=== PATIENT | female | born 1980 | race Caucasian/White ===

== ENCOUNTER 2020-06-23 08:09 | Inpatient (IN) ==
[~2020-06-23 08:09] MED LIST: Famotidine 20 MG/2 ML VIAL IVP PRN; Metoclopramide 10 MG/2 ML VIAL IVP PRN; Naloxone 0.4 MG/ML INJ IVP PRN
[2020-06-23] MEDS ORDERED: Ringers Solution, Lactated 1,000 ML IVC SCH (08:15)
[2020-06-23 09:44] LABS: Basophils % 0.2 %; Eosinophils # 0.1 K/mcL (0.0-0.6); Eosinophils % 0.5 %; Hematocrit 31.6 % (35.3-44.9); Immature Granulocytes % 0.7 % (0-4); Lymphocytes # 1.2 K/mcL (0.6-4.6); Lymphocytes % 11.3 %; Mean Corpuscular HGB Conc 31.6 g/dL (31.6-35.5); Mean Corpuscular Hemoglobin 27.6 pg (28.0-33.3); Mean Corpuscular Volume 87.3 fL (83.0-100.0); Mean Platelet Volume 10.1 fL (9.4-12.4); Monocytes # 0.7 K/mcL (0.0-1.3); Monocytes % 6.2 %; Neutrophils # 8.6 K/mcL (1.6-8.9); Platelet Count 275 K/mcL (140-400); Red Blood Count 3.62 M/mcL (3.82-4.97); Segmented Neutrophils % 81.1 %; White Blood Count 10.6 K/mcL (4.3-11.1)
[2020-06-23 10:37] LABS: Adenovirus Not Detected (Not Detect); Bordetella Pertussis Not Detected (Not Detect); Chlamydophila pneumoniae Not Detected (Not Detect); Coronavirus 229E Not Detected (Not Detect); Coronavirus HKU1 Not Detected (Not Detect); Coronavirus NL63 Not Detected (Not Detect); Coronavirus OC43 Not Detected (Not Detect); Human Metapneumovirus Not Detected (Not Detect); Human Rhinovirus/Enterovirus Not Detected (Not Detect); Influenza A Subtype 2009 H1 Not Detected (Not Detect); Influenza B Not Detected (Not Detect); Mycoplasma pneumoniae Not Detected (Not Detect); Parainfluenza Virus 1 Not Detected (Not Detect); Parainfluenza Virus 2 Not Detected (Not Detect); Parainfluenza Virus 3 Not Detected (Not Detect); Parainfluenza Virus 4 Not Detected (Not Detect); Respiratory Syncytial Virus Not Detected (Not Detect); SARS-CoV-2 Not Detected (Not Detect)
== END 2020-06-23 14:37 | disposition home or self-care (01) | DRG 833 ==
LOC: 1NENULAB
PROVIDERS: ADMIT Obstetrics & Gynecology; ATTEND Obstetrics & Gynecology

== ENCOUNTER 2020-06-26 08:00 | Inpatient (IN) ==
[2020-06-26] MEDS ORDERED: Naloxone 0.4 MG/ML INJ IVP PRN (09:53)
[2020-06-26] MEDS ORDERED: Famotidine 20 MG/2 ML VIAL IVP PRN (09:53)
[2020-06-26] MEDS ORDERED: Azithromycin 500 MG in 0.9 % Sodium Chloride 250 ML IVPB ONE (09:53)
[2020-06-26] MEDS ORDERED: Metoclopramide 10 MG/2 ML VIAL IVP PRN (09:53)
[2020-06-26 11:09] LABS: Basophils % 0.3 %; Eosinophils # 0.1 K/mcL (0.0-0.6); Eosinophils % 0.6 %; Hematocrit 31.4 % (35.3-44.9); Hemoglobin 9.7 g/dL (11.5-15.4); Immature Granulocytes % 0.6 % (0-4); Lymphocytes # 1.3 K/mcL (0.6-4.6); Lymphocytes % 12.2 %; Mean Corpuscular HGB Conc 30.9 g/dL (31.6-35.5); Mean Corpuscular Hemoglobin 26.6 pg (28.0-33.3); Monocytes # 0.6 K/mcL (0.0-1.3); Monocytes % 5.8 %; Neutrophils # 8.7 K/mcL (1.6-8.9); Platelet Count 265 K/mcL (140-400); Red Blood Count 3.65 M/mcL (3.82-4.97); Red Cell Distribution Width 14.3 % (11.5-14.5); Segmented Neutrophils % 80.5 %; White Blood Count 10.8 K/mcL (4.3-11.1)
[2020-06-26] MEDS ORDERED: EPHEDrine 50 MG/ML VIAL IVP PRN (11:11)
[2020-06-26 11:15] LABS: Amphetamine Screen,Urine Negative ng/mL (Cutoff=1000); Barbiturate Screen,Urine Negative ng/mL (Cutoff=200); Benzodiazepines Screen,Urine Negative ng/mL (Cutoff=200); Cannabinoid Screen,Urine Negative ng/mL (Cutoff = 50); Cocaine Screen,Urine Negative ng/mL (Cutoff= 300); Opiate Screen,Urine Negative ng/mL (Cutoff=300); Phencyclidine Screen,Urine Negative ng/mL (Cutoff=25)
[2020-06-26] MEDS ORDERED: Epidural Premix (fent/bupiv) 110 ML EP SCH (11:15)
[2020-06-26] MEDS ORDERED: Oxytocin 20 units/ LR 1000 mL 20 UNIT/1,000 ML BAG IVC ONE (14:16)
[2020-06-26] MEDS: Ringers Solution, Lactated 1,000 ML IVC SCH ×2 (14:26→23:01)
[2020-06-26] MEDS ORDERED: *HR* FentaNYL (PF) 100 MCG/2 ML VIAL IVP PRN (22:41)
[2020-06-27] MEDS ORDERED: *HR* FentaNYL (PF) 100 MCG/2 ML VIAL ONE ×3 (02:31→06:44)
[2020-06-27] MEDS ORDERED: Lidocaine -MPF 2% 5 ML VIAL ONE (02:31)
[2020-06-27] MEDS ORDERED: Bupivacaine-MPF 0.25% 10 ML VIAL ONE (02:54)
[2020-06-27] MEDS ORDERED: Lidocaine/EPI 1:200k 2% PF 20 ML VIAL ONE ×2 (06:44→08:59)
[2020-06-27] MEDS ORDERED: Oxytocin 20 units/ LR 1000 mL 20 UNIT/1,000 ML BAG IVC ONE (11:21)
[2020-06-27] MEDS ORDERED: Ibuprofen 600 MG TABLET PO STA (12:00)
[2020-06-27] MEDS ORDERED: Oxytocin 20 units/ LR 1000 mL 20 UNIT/1,000 ML BAG IVC SCH (14:04)
[2020-06-27] MEDS ORDERED: Measles/Mumps/Rubella Vacc 0.5 ML VIAL SQ PRN (14:04)
[2020-06-27] MEDS ORDERED: Rho Immune Globulin 1,500 UNIT SYRINGE IM PRN (14:04)
[2020-06-27] MEDS: Acetaminophen 325 MG TABLET PO PRN (14:59)
[2020-06-27] MEDS: Ibuprofen 600 MG TABLET PO PRN (18:38)
[2020-06-27 19:39] LABS: Alanine Aminotransferase 20 Units/L (7-52); Aspartate Amino Transferase 22 Units/L (13-39); BUN/Creatinine Ratio 18 (6-26); Blood Urea Nitrogen 13 mg/dL (6-20); Lactate Dehydrogenase 179 Units/L (140-271); Uric Acid 7.3 mg/dL (2.3-7.6); eGFR For African Americans > 60 (> 60); eGFR For Non-African Americans > 60 (> 60)
[2020-06-28] MEDS: Acetaminophen 325 MG TABLET PO PRN (01:38)
[2020-06-28 05:56] LABS: Basophils % 0.2 %; Eosinophils % 0.2 %; Hematocrit 25.1 % (35.3-44.9); Hemoglobin 7.9 g/dL (11.5-15.4); Immature Granulocytes % 0.8 % (0-4); Lymphocytes # 1.5 K/mcL (0.6-4.6); Lymphocytes % 7.8 %; Mean Corpuscular HGB Conc 31.5 g/dL (31.6-35.5); Mean Corpuscular Hemoglobin 26.5 pg (28.0-33.3); Mean Corpuscular Volume 84.2 fL (83.0-100.0); Mean Platelet Volume 10.1 fL (9.4-12.4); Monocytes # 1.2 K/mcL (0.0-1.3); Monocytes % 6.3 %; Neutrophils # 16.1 K/mcL (1.6-8.9); Platelet Count 251 K/mcL (140-400); Red Blood Count 2.98 M/mcL (3.82-4.97); Red Cell Distribution Width 14.6 % (11.5-14.5); Segmented Neutrophils % 84.7 %
[2020-06-28] MEDS: Ibuprofen 600 MG TABLET PO PRN (06:23)
[2020-06-28 07:53] VITALS: BP 118/77
[2020-06-28] MEDS ORDERED: Prenatal Vit/FA 1 EACH TABLET PO SCH (09:00)
== END 2020-06-28 11:53 | disposition home or self-care (01) ==
LOC: 1NENULAB 08:04 → 1NENUOBS 06-27 13:54
PROVIDERS: ADMIT Obstetrics & Gynecology; ATTEND Obstetrics & Gynecology